=== PATIENT | female | born 1970 | race African-American/Black ===

== ENCOUNTER 2018-07-02 21:40 | Emergency (ER) | payer SELFPAY ==
[2018-07-02] MEDS ORDERED: ONDANSETRON 4 MG/2 ML VIAL IVPB ONE (21:50)
[2018-07-02] MEDS ORDERED: SODIUM CHLORIDE 1,000 ML IV ONE ×2 (21:50→22:55)
--- NOTE | 2018-07-02 21:50 | PDOC ---
History of Present Illness - History of Present Illness Initial Comments: This patient is a 47 year old female with PMHx of DM, HLD, who presents with abdominal pain and vomiting today. Patient states that she has been having back pain recently, so she had an MRI which revealed a cyst, patient is not sure exactly where the cyst is located. She states that she had a doctors appointment today for a pelvic US. Afterwards, she states that she came home and began feeling abdominal pain, and states that she began to vomit. Last vomit was around 8:00 pm. She states that her abdominal pain is sharp, located lower chest/upper abdominal area, comes and goes, worse with movement. She denies any fevers, shortness of breath, palpitations, headache, or dizziness. PAST MEDICAL HISTORY: DM, HLD PAST SURGICAL HISTORY: no significant history FAMILY HISTORY: no pertinent history SOCIAL HISTORY: Pt lives with family. MEDICATIONS: reviewed ALLERGIES: As per nursing notes ROS General: No fevers or chills, no weakness, no weight loss HEENT: No change in vision. No sore throat, No ear pain Cardiovascular: No chest pain or shortness of breath Respiratory:No cough, or wheezing. Gastrointestinal: +vomiting, +abdominal pain, no diarrhea or constipation, No rectal bleeding Genitourinary: No dysuria, hematuria, or frequency Musculoskeletal: No joint or muscle pain or swelling Neurologic: No headache, vertigo, dizziness or loss of consciousness Psychiatric: No depression Skin: No rashes or easy bruising Endocrine: No increased thirst or abnormal weight change Allergic: No skin or latex allergy All other systems reviewed and normal PE General: Well-nourished well-developed individual, no acute distress Throat: Normal, tonsils normal, no erythema or exudate. Dry mus[place]a. Neck: Supple, no meningeal signs, no lymphadenopathy Eyes:Pupils equal reactive and round, extraocular motion intact Chest: Nontender to palpation Cardiac: S1-S2 normal, regular rate and rhythm, no murmurs rubs or gallops Respiratory: Lungs clear to auscultation bilateral Abdomen: Soft, nondistended, normal bowel sounds, mild tenderness to palpation of epigastric and periumbilical area. No guarding, no rebound. Extremities: Warm, dry, no cyanosis, clubbing, or edema Skin: No rashes Neuro: Alert and oriented x3, nonfocal exam, grossly intact, normal gait Psych: Normal mood and affect 07/02/18 22:02 07/02/18 23:26 <Sheila Burnett - Last Filed: 07/02/18 23:26> - General History Source: Patient Exam Limitations: No Limitations - History of Present Illness Initial Comments: 07/02/18 21:55 A portion of this note was documented by scribe services under my direction. I have reviewed the details of the note, within reason, and agree with the documentation with the following case summary and management plan written by me. Patient treated in the ED. Nursing notes are reviewed and incorporated into the medical decision-making. Vital signs reviewed. Assessment plan: This is a 47-year-old female who comes in complaining of nausea vomiting and some abdominal pain. Patient said the pain began as lower chest upper abdominal pain and then she developed the nausea and vomiting. Patient denied any fevers or chills, shortness of breath or any other symptoms. Patient's history was otherwise significant for a pelvic ultrasound today for what appears to be an unrelated concern. Will initiate a workup including CBC, comp, light , UA, EKG. Well-hydrated patient with some normal saline and give her antiemetics. Will reassess and review results of workup 07/02/18 23:28 Reevaluation patient feels much better after morphine and 2 L of fluid. Patient now appears to be hydrated. Patient given a by mouth challenge which she tolerated. Prescription sent to her pharmacy for Zofran and hyoscyamine Patient discharged home <Melvin Wang I - Last Filed: 07/02/18 23:31> - General Chief Complaint: Pain, Acute Stated Complaint: VOMITING, LIGHTHEADED POST PELVIC US Time Seen by Provider: 07/02/18 21:44 Past History <Sheila Burnett - Last Filed: 07/02/18 23:26> <Melvin Wang I - Last Filed: 07/02/18 23:31> - Past Medical History Allergies/Adverse Reactions: Allergies Allergy/AdvReac Type Severity Reaction Status Date / Time No Known Allergies Allergy Verified 07/02/18 21:42 Home Medications: Ambulatory Orders Hyoscyamine Odt [Levsin Odt -] 0.125 mg PO BID #8 tab.rapdis 07/02/18 Metformin HCl [Glucophage] 1,000 mg PO DAILY 07/02/18 Ondansetron [Zofran Odt -] 4 mg SL TID #12 od.tablet 07/02/18 Simvastatin [Zocor -] 20 mg PO HS 07/02/18 Review of Systems - Review of Systems Comments:: 07/02/18 22:06 see HPI <Sheila Burnett - Last Filed: 07/02/18 23:26> *Physical Exam - Vital Signs Last Vital Signs Temp Pulse Resp BP Pulse Ox 98.8 F 100 H 16 148/100 100 07/02/18 21:46 07/02/18 21:46 07/02/18 21:46 07/02/18 21:46 07/02/18 21:46 - Physical Exam Comments: 07/02/18 22:06 see HPI <Sheila Burnett - Last Filed: 07/02/18 23:26> Moderate Sedation - Procedure Monitoring Vital Signs: Procedure Monitoring Vital Signs Temperature 98.8 F 07/02/18 21:46 Pulse Rate 100 H 07/02/18 21:46 Respiratory Rate 16 07/02/18 21:46 Blood Pressure 148/100 07/02/18 21:46 O2 Sat by Pulse Oximetry (%) 100 07/02/18 21:46 <Sheila Burnett - Last Filed: 07/02/18 23:26> ED Treatment Course - LABORATORY CBC & Chemistry Diagram: 07/02/18 22:00 07/02/18 22:00 <Sheila Burnett - Last Filed: 07/02/18 23:26> - LABORATORY CBC & Chemistry Diagram: 07/02/18 22:00 07/02/18 22:00 <Melvin Wang I - Last Filed: 07/02/18 23:31> *DC/Admit/Observation/Transfer - Attestations Scribe Attestion: 07/02/18 22:07 Documentation prepared by Sheila Burnett, acting as medical service representative for Melvin Wang MD. <Sheila Burnett - Last Filed: 07/02/18 23:26> - Discharge Dispostion Decision to Admit order: No <Melvin Wang I - Last Filed: 07/02/18 23:31> Diagnosis at time of Disposition: Dehydration Nausea and vomiting Qualifiers: Vomiting type: unspecified Vomiting Intractability: non-intractable Qualified Code(s): R11.2 - Nausea with vomiting, unspecified - Discharge Dispostion Disposition: HOME Condition at time of disposition: Stable - Prescriptions Prescriptions: Hyoscyamine Odt [Levsin Odt -] 0.125 mg PO BID #8 tab.rapdis Ondansetron [Zofran Odt -] 4 mg SL TID #12 od.tablet - Patient Instructions Additional Instructions: Clear liquids only for the next 6 hours.. After that if you have had no further vomiting you may have bananas, rice, applesauce, or toast. If you vomit again take Zofran 1 tablet as often as 3 times a day For the vomiting take hyosciamine one tablet as often as twice a day. If no further vomiting for another 8 hours you may have regular food. If you vomit again then nothing to eat or drink for 2 hours. then start back with the clear liquids. Return to the emergency department immediately with ANY new, persistent or worsening symptoms. You MUST call and follow up with your doctor tomorrow if not better. Please make sure your doctor reviews the results of your emergency evaluation. Return to the emergency department immediately with ANY new, persistent or worsening symptoms. Continue any medications as previously prescribed by your physician. You should follow up with your primary doctor as soon as possible regarding today's emergency department visit. . Please make sure your doctor reviews the results of your emergency evaluation. Thank you for coming to the Emergency Department today for your care. It was a pleasure to see you today. Please note that your evaluation is INCOMPLETE until you follow-up with your doctor.
[2018-07-02 22:15] LABS: URINE APPEARANCE Clear; URINE BILIRUBIN Negative (NEGATIVE); URINE COLOR Yellow; URINE GLUCOSE (UA) 2+ (NEGATIVE); URINE KETONE 2+ (NEGATIVE); URINE LEUK ESTERASE TRACE (NEGATIVE); URINE NITRITE Negative (NEGATIVE); URINE PROTEIN Negative (NEGATIVE); URINE UROBILINOGEN 0.2 (0.2-1.0)
[2018-07-02] MEDS ORDERED: morphine CARPU-JECT 2 MG/1 ML DISP.SYRIN IVPUSH ONE (22:22)
[2018-07-02] MEDS ORDERED: ONDANSETRON 4 MG/2 ML VIAL ONE (22:24)
[2018-07-02] MEDS ORDERED: morphine SULFATE 4 MG/ML VIAL ONE (22:24)
[2018-07-02 22:31] LABS: BASO % 0.6 % (0-2.0); EOS % 0.4 % (0-4.5); EPI CELLS 3+ /HPF; HEMATOCRIT 47.9 % (32.4-45.2); HEMOGLOBIN 15.8 GM/dl (10.7-15.3); LYMPH % 6.1 % (8-40); MCH 28.2 pg (25.7-33.7); MEAN CELL VOLUME 85.4 fl (80-96); MEAN PLT VOLUME 8.5 fl (7.5-11.1); MONO % 4.7 % (3.8-10.2); NEUT % 88.2 % (42.8-82.8); PLATELET COUNT 301 K/MM3 (134-434); RBC 5.61 M/mm3 (3.60-5.2); RDW 11.9 % (11.6-15.6); URINE RBC 0-2 /hpf (0-3); WHITE BLOOD COUNT 9.5 K/mm3 (4.0-10.8)
[2018-07-02 22:32] LABS: URINE BACTERIA 1+ /hpf (NEGATIVE)
[2018-07-02 22:34] VITALS: TEMP 98.8; BMI 37.2
[2018-07-02 22:47] LABS: ALBUMIN 4.6 g/dl (3.4-5.0); ALK PHOS 80 U/L (45-117); ANION GAP 14 MMOL/L (8-16); BILIRUBIN,TOTAL 2.4 mg/dl (0.2-1); BLOOD UREA NITROGEN 11 mg/dl (7-18); CALCIUM 9.6 mg/dl (8.5-10); CHLORIDE 93 mmol/L (98-107); CO2 25 mmol/L (21-32); CREATININE 0.8 mg/dl (0.55-1.3); GLUCOSE,RANDOM 276 mg/dl (74-106); POTASSIUM 3.8 mmol/L (3.5-5.1); SGOT/AST 21 U/L (15-37); SGPT/ALT 23 U/L (13-61); SODIUM 132 mmol/L (136-145); TOT PROT 8.1 g/dl (6.4-8.2)
[2018-07-02] MEDS ORDERED: HYOSCYAMINE SULFATE 0.125 MG *ODT ONE (22:58)
[2018-07-02] MEDS ORDERED: HYOSCYAMINE SULFATE 0.125 MG *ODT PO ONE (22:58)
[2018-07-02 23:16] LABS: LIPASE 150 U/L (73-393)
[2018-07-02 23:36] VITALS: BP 139/88; PULSE 98
--- NOTE | 2018-07-03 15:50 | EKG ---
Test Reason : Blood Pressure : / mmHG Vent. Rate : 102 BPM Atrial Rate : 102 BPM P-R Int : 186 ms QRS Dur : 074 ms QT Int : 352 ms P-R-T Axes : 059 047 022 degrees QTc Int : 458 ms SINUS TACHYCARDIA NONSPECIFIC T WAVE ABNORMALITY ABNORMAL ECG NO PREVIOUS ECGS AVAILABLE Confirmed by Ronald Frye ([id number]) on 07/03/2018 3:50:34 PM Referred By: CAMPOS Confirmed By:Ronald Frye
== END 2018-07-02 23:39 | disposition home or self-care (01) ==
LOC: FER 21:40
PROC: 3E033NZ Introduction of Analgesics, Hypnotics, Sedatives into Peripheral Vein, Percutaneous Approach (ICD-10-PCS; principal; 2018-07-02)
PROC: 3E033GC Introduction of Other Therapeutic Substance into Peripheral Vein, Percutaneous Approach (ICD-10-PCS; 2018-07-02)
PROC: 3E0337Z Introduction of Electrolytic and Water Balance Substance into Peripheral Vein, Percutaneous Approach (ICD-10-PCS; 2018-07-02)
DX: E86.0 Dehydration (principal); R11.2 Nausea with vomiting, unspecified
CPT/HCPCS: 36415; 80053; 81003; 81015; 82550; 83690; 84484; 85025; 93005; 99283-25; J7030

== ENCOUNTER 2018-09-19 08:05 | Emergency (ER) | payer OTHER ==
--- NOTE | 2018-09-19 08:19 | PDOC ---
History of Present Illness - General Chief Complaint: Pain Stated Complaint: RIGHT LIP ,ARM,LEG NUMBNESS Time Seen by Provider: 09/19/18 08:18 - History of Present Illness Initial Comments: 09/19/18 08:32 Chief complaint: Numbness tingling of the right side of the mouth, right arm, and right leg. "Heaviness" right arm since Monday History of present illness: Brief episodes of the above symptoms lasting about 1 minute, with everything resolving completely except for heaviness. Approximately 6 episodes in all. Last episode this morning. Review of systems: Denies visual symptoms. Denies unsteadiness of gait or other difficulty ambulating. Denies chest pain, shortness of breath, abdominal pain, nausea, vomiting, diarrhea, palpitations, lightheadedness, dizziness, vertigo, urinary tract symptoms, vaginal bleeding or discharge. Status post hysterectomy. Remainder systems reviewed and negative Past medical history: Patient states that she has been borderline diabetic, hypertensive, and with elevated cholesterol for about 1 year. Hysterectomy in the past. Stress and anxiety due to the troubles of her son. Taking her medication as directed. Also taking a baby aspirin daily since Monday. Social history: No tobacco, no nonprescription drugs, admits drinking alcohol on weekends but not every day. Unemployed, staying at home. Family history: Reviewed and negative for early coronary artery disease, metabolic diseases including diabetes, cancer, neurologic disease including aneurysm, stroke, TIA in parents, and siblings. Physical exam: Alert and oriented well-developed well-nourished no acute distress cheerful and cooperative Afebrile, vital signs normal except for borderline blood pressure of 138/100 PERRLA 4 mm, fundi benign with sharp disc margins and good central venous pulsations. Visual uqinonez intact to confrontation. ENT clear Neck supple without bruit mass or nodes Lungs clear with full breath sounds bilaterally CV S1 and S2 normal without murmur rub or gallop pulses full and symmetric no JVD or edema no bruits Abdomen nondistended. Bowel sounds normal. Soft without mass tenderness organomegaly Neurological C2 to 12 intact. Strength is full and symmetric with no detectable weakness of the right arm or hand. No demonstrable sensory deficits in the extremities or the face despite complaints of "tingling"episodes. Gait stable and unimpaired Extremities no CCE Skin clear, no rash, good turgor and wet mucous membranes Impression: Briefness of these episodes along with normal examination, recent stress and anxiety, suggests this as an etiology. TIA cannot be excluded, though there appear to be no significant risk factors. Plan: EKG and enzymes, CBC and chemistries, CT and further evaluation depending on results. Observation. 09/19/18 08:44 Past History - Past Medical History Allergies/Adverse Reactions: Allergies Allergy/AdvReac Type Severity Reaction Status Date / Time No Known Allergies Allergy Verified 09/19/18 08:07 Home Medications: Ambulatory Orders Metformin HCl [Glucophage] 1,000 mg PO DAILY 07/02/18 Simvastatin [Zocor -] 20 mg PO HS 07/02/18 Amoxicillin - [Amoxicillin 500mg Capsule -] 500 mg PO TID 09/19/18 Glipizide [Glipizide ER] 10 mg PO DAILY 09/19/18 Lisinopril/Hydrochlorothiazide [Lisinopril-Hctz 10-12.5 mg Tab] 1 each PO DAILY 09/19/18 COPD: No Diabetes: Yes Thyroid Disease: Yes - Suicide/Smoking/Psychosocial Hx Smoking History: Never smoked Have you smoked in the past 12 months: No Hx Alcohol Use: Yes (OCCAS.) Drug/Substance Use Hx: No ED Treatment Course - LABORATORY CBC & Chemistry Diagram: 09/19/18 09:19 09/19/18 09:07 Medical Decision Making - Medical Decision Making 09/19/18 08:42 EKG reveals normal sinus rhythm 84/m. Normal axes and intervals. No ST-T wave changes. Normal EKG 09/19/18 11:34 CT scan is normal, with no evidence of infarction or other intracranial process CBC, chemistries without significant abnormalities other than elevated glucose [address] Miller by phone. Thoroughly discussed the case, including symptoms, laboratory findings, and CT results. His opinion is that this is unlikely to be a TIA or stroke. Most likely need to be due to elevated glucose or anxiety. He agrees with discharge with close follow-up. He will see the patient 10 AM tomorrow in his office This was discussed thoroughly with the patient and her family. She understands and agrees. It was recommended she return to the ER immediately if the symptoms worsen or become more prolonged. Otherwise follow-up with neurologist as directed. Fully ambulatory, in no distress and asymptomatic at discharge to follow-up as directed *DC/Admit/Observation/Transfer Diagnosis at time of Disposition: Anxiety hyperventilation - Discharge Dispostion Disposition: HOME Condition at time of disposition: Stable Decision to Admit order: No - Referrals Referrals: Marco Miller MD [Staff Physician] - 24 hours - Patient Instructions Printed Discharge Instructions: DI for Anxiety -- Adult, DI for Hyperventilation Additional Instructions: Laboratory work and CT scan of your brain were negative, except for elevated blood sugar as discussed Your symptoms and lab work were thoroughly discussed with our neurologist. He recommends follow-up in his office tomorrow at 10 AM. You are given his address and phone number and encouraged to see him as directed for further evaluation and treatment. If symptoms worsen, become more severe or prolonged, or other significant symptoms develop, return immediately to the emergency room. - Post Discharge Activity
[2018-09-19 08:22] VITALS: BP 138/100; PULSE 96; TEMP 98.4; BMI 38.4
[2018-09-19 09:45] LABS: ALBUMIN 4.3 g/dl (3.4-5.0); ALK PHOS 59 U/L (45-117); ANION GAP 11 MMOL/L (8-16); BILIRUBIN,TOTAL 1.5 mg/dl (0.2-1); BLOOD UREA NITROGEN 14 mg/dl (7-18); CALCIUM 9.9 mg/dl (8.5-10); CHLORIDE 99 mmol/L (98-107); CO2 24 mmol/L (21-32); CREATININE 0.8 mg/dl (0.55-1.3); GLUCOSE,RANDOM 239 mg/dl (74-106); POTASSIUM 4.2 mmol/L (3.5-5.1); SGOT/AST 18 U/L (15-37); SGPT/ALT 19 U/L (13-61); SODIUM 134 mmol/L (136-145); TOT PROT 7.4 g/dl (6.4-8.2)
[2018-09-19 10:19] LABS: BASO % 0.7 % (0-2.0); EOS % 1.4 % (0-4.5); HEMATOCRIT 47.5 % (32.4-45.2); HEMOGLOBIN 15.7 GM/dl (10.7-15.3); LYMPH % 30.9 % (8-40); MCH 28.9 pg (25.7-33.7); MEAN CELL VOLUME 87.8 fl (80-96); MEAN PLT VOLUME 8.4 fl (7.5-11.1); MONO % 7.9 % (3.8-10.2); NEUT % 59.1 % (42.8-82.8); PLATELET COUNT 291 K/MM3 (134-434); RBC 5.42 M/mm3 (3.60-5.2); RDW 12.1 % (11.6-15.6); WHITE BLOOD COUNT 7.4 K/mm3 (4.0-10.8)
--- NOTE | 2018-09-19 12:23 | EKG ---
Test Reason : Blood Pressure : / mmHG Vent. Rate : 084 BPM Atrial Rate : 084 BPM P-R Int : 184 ms QRS Dur : 074 ms QT Int : 362 ms P-R-T Axes : 062 032 030 degrees QTc Int : 427 ms NORMAL SINUS RHYTHM NORMAL ECG WHEN COMPARED WITH ECG OF 02-JUL-2018 22:00, NONSPECIFIC T WAVE ABNORMALITY NO LONGER EVIDENT IN ANTERIOR LEADS Confirmed by RUTHIE TUCKER, ISADORA ([id number]) on 09/19/2018 12:23:09 PM Referred By: MD MCGARRY Confirmed By:ISADORA HENDRICKS MD
== END 2018-09-19 11:44 | disposition home or self-care (01) ==
LOC: FER 08:05
DX: R06.4 Hyperventilation (principal); E11.9 Type 2 diabetes mellitus without complications; E03.9 Hypothyroidism, unspecified
CPT/HCPCS: 36415; 70450-TC; 80053; 81003; 82550; 84484; 85025; 93005; 99283-25

== ENCOUNTER 2019-06-12 11:45 | Emergency (ER) | payer OTHER ==
[2019-06-12] MEDS ORDERED: SODIUM CHLORIDE 1,000 ML IV STA (11:54)
--- NOTE | 2019-06-12 11:54 | PDOC ---
History of Present Illness - General Chief Complaint: Chest Pain Stated Complaint: CHEST PAIN Time Seen by Provider: 06/12/19 11:52 - History of Present Illness Initial Comments: 06/12/19 Chief complaint: Nausea, vomiting, and chest pain HPI: Patient has had nausea, repetitive vomiting of bilious fluid, and pain in the epigastrium radiating to the mid chest for several days. She has been able to tolerate p.o. fluids intermittently. Review of systems: No fever/chills, headache, URI symptoms, sore throat, cough, shortness of breath, calf swelling or tenderness, hematemesis, melena, bloody stool, vaginal bleeding or discharge. No urinary tract symptoms. She does admit to watery stools yesterday. Past medical history: High blood pressure and diabetes, formerly maintained on medication, discontinued recently because her doctor felt that she did not need them anymore. Social history: No tobacco alcohol or drugs. Recently returned 3 weeks ago from a cruise in the [facility]. No illnesses during the cruise Family history: Mother father brothers and sisters without history of cardiac or cardiovascular disease including HI, CVA, PVD. No metabolic diseases. No cancer Physical exam: Alert and oriented well-developed well-nourished no acute distress cheerful and cooperative. Mild epigastric and chest pain at present Afebrile, vital signs normal including blood pressure of 122/77 No pallor or icterus. PERRLA, fundi benign, ENT clear Neck supple without bruit mass or nodes Chest clear to PNA with full breath sounds bilaterally. No wheezes rales or rhonchi. Mild tenderness to palpation over the mid sternum. CV S1-S2 normal without murmur rub or gallop pulses full and symmetric no JVD or edema no bruits Abdomen nondistended. Bowel sounds normal. Soft without mass organomegaly. Mild tenderness to deep palpation in the epigastrium without guarding or rebound. No left upper quadrant or right upper quadrant masses or tenderness. Rivera's is negative. No lower quadrant tenderness Extremities no CCE Skin clear, no rash, adequate turgor and wet mucous membranes Neurological intact Impression: CBC shows mildly elevated white count of 11.9 with a left shift, glucose 275. Cardiac enzymes negative Viral gastroenteritis versus diabetic gastroparesis, or combination thereof, seems to be the most likely diagnosis. No sign of liver/gallbladder disease, or other intra-peritoneal process Plan: Reinitiate metformin, begin Protonix, Zofran for symptoms. Push p.o. fluids. Follow-up with primary physician or oil well services superintendent for further evaluation and treatment. Return to ER if symptoms worsen. Fully ambulatory and in no significant pain or other distress upon discharge with daughter to follow-up as directed 06/12/19 16:18 Past History - Past Medical History Allergies/Adverse Reactions: Allergies Allergy/AdvReac Type Severity Reaction Status Date / Time No Known Allergies Allergy Verified 06/12/19 11:47 Home Medications: Ambulatory Orders Metformin HCl [Glucophage] 500 mg PO BID #30 tablet 06/12/19 Ondansetron [Zofran *Odt*] 4 mg SL TID PRN #20 od.tablet 06/12/19 Pantoprazole Sodium [Protonix] 40 mg PO DAILY #20 tablet. 06/12/19 COPD: No Diabetes: Yes HTN: Yes Hypercholesterolemia: Yes Thyroid Disease: Yes - Psycho Social/Smoking Cessation Hx Smoking History: Never smoked Have you smoked in the past 12 months: No Hx Alcohol Use: Yes (OCCAS.) Drug/Substance Use Hx: No ED Treatment Course - LABORATORY CBC & Chemistry Diagram: 06/12/19 12:05 06/12/19 11:56 Discharge - Discharge Information Problems reviewed: Yes Clinical Impression/Diagnosis: Diabetes Nausea and vomiting Qualifiers: Vomiting type: unspecified Vomiting Intractability: non-intractable Qualified Code(s): R11.2 - Nausea with vomiting, unspecified Condition: Stable Disposition: HOME - Admission No - Additional Discharge Information Prescriptions: Metformin HCl [Glucophage] 500 mg PO BID #30 tablet Ondansetron [Zofran *Odt*] 4 mg SL TID PRN #20 od.tablet PRN Reason: Nausea And/Or Vomiting Pantoprazole Sodium [Protonix] 40 mg PO DAILY #20 tablet.dr - Follow up/Referral Referrals: Patrick Esquivel MD [Staff Physician] - 1 week - Patient Discharge Instructions Patient Printed Discharge Instructions: DI for Diabetes Type 2 - Post Discharge Activity
[2019-06-12 11:56] VITALS: TEMP 99.1; BMI 36.3
[2019-06-12] MEDS ORDERED: ONDANSETRON 4 MG/2 ML VIAL IVPB ONE (12:21)
[2019-06-12] MEDS ORDERED: ACETAMINOPHEN 1000 MG/100 ML VIAL (NON FORMULARY) IVPB ONE (12:22)
[2019-06-12 12:24] LABS: BASO % 0.4 % (0-2.0); EOS % 0.1 % (0-4.5); HEMATOCRIT 48.9 % (32.4-45.2); HEMOGLOBIN 15.8 GM/dl (10.7-15.3); LYMPH % 6.7 % (8-40); MCH 28.1 pg (25.7-33.7); MCHC 32.4 g/dl (32.0-36.0); MEAN CELL VOLUME 86.6 fl (80-96); MEAN PLT VOLUME 8.3 fl (7.5-11.1); MONO % 6.3 % (3.8-10.2); NEUT % 86.5 % (42.8-82.8); PLATELET COUNT 289 K/MM3 (134-434); RBC 5.64 M/mm3 (3.60-5.2); RDW 11.9 % (11.6-15.6); WHITE BLOOD COUNT 11.9 K/mm3 (4.0-10.8)
[2019-06-12] MEDS ORDERED: ACETAMINOPHEN INJECTION 100 ML IVPB ONE (12:28)
[2019-06-12] MEDS ORDERED: ONDANSETRON 4 MG/2 ML VIAL ONE (12:28)
[2019-06-12 13:15] LABS: ALBUMIN 4.1 g/dl (3.4-5.0); BILIRUBIN,TOTAL 2.4 mg/dl (0.2-1); CALCIUM 9.5 mg/dl (8.5-10); CREATININE 0.7 mg/dl (0.55-1.3); POTASSIUM 3.8 mmol/L (3.5-5.1); TOT PROT 7.4 g/dl (6.4-8.2)
[2019-06-12 14:31] VITALS: BP 117/77; PULSE 92
--- NOTE | 2019-06-13 11:53 | EKG ---
Test Reason : Blood Pressure : / mmHG Vent. Rate : 102 BPM Atrial Rate : 102 BPM P-R Int : 174 ms QRS Dur : 074 ms QT Int : 354 ms P-R-T Axes : 065 044 037 degrees QTc Int : 461 ms SINUS TACHYCARDIA POSSIBLE LEFT ATRIAL ENLARGEMENT BORDERLINE ECG WHEN COMPARED WITH ECG OF 19-SEP-2018 08:39, NO SIGNIFICANT CHANGE WAS FOUND Confirmed by LES STAPLES MD ([id number]) on 06/13/2019 11:52:42 AM Referred By: AYSE YAÑEZ Confirmed By:LES STAPLES MD
== END 2019-06-12 15:45 | disposition home or self-care (01) ==
LOC: FER 11:45
PROC: 3E033NZ Introduction of Analgesics, Hypnotics, Sedatives into Peripheral Vein, Percutaneous Approach (ICD-10-PCS; principal; 2019-06-12)
PROC: 3E033GC Introduction of Other Therapeutic Substance into Peripheral Vein, Percutaneous Approach (ICD-10-PCS; 2019-06-12)
PROC: 3E0337Z Introduction of Electrolytic and Water Balance Substance into Peripheral Vein, Percutaneous Approach (ICD-10-PCS; 2019-06-12)
DX: E78.00 Pure hypercholesterolemia, unspecified (principal); E11.9 Type 2 diabetes mellitus without complications; I10 Essential (primary) hypertension; E03.9 Hypothyroidism, unspecified
CPT/HCPCS: 36415; 71045-TC-FY; 80053; 81003; 82550; 84484; 84703; 85025; 93005; 96361; 96374; 96375; 99285-25; J0131; J7030